=== PATIENT | male | born 1935 ===

== ENCOUNTER 2017-12-13 11:55 | Observation (INO) | payer MEDICARE, OTHER ==
[~2017-12-13] VITALS: Ht 167.6 cm; Wt 72.8 kg
[2017-12-13 12:51] LABS: BASOPHILS # (AUTO) 0.1 (0.0-0.1); BASOPHILS % 0.6 % (0.0-1.0); EOSINOPHILS # (AUTO) 0.3 (0.0-0.4); EOSINOPHILS % 2.2 % (0.0-6.0); HEMATOCRIT 44.9 % (38.2-49.6); HEMOGLOBIN 14.8 g/dL (14.0-18.0); LYMPHOCYTES # (AUTO) 1.5 (1.0-3.2); MEAN CORPUSCULAR HEMOGLOBIN 32.9 pg (28-32); MEAN CORPUSCULAR VOLUME 99.8 fL (81-99); MONOCYTES # (AUTO) 0.5 (0.2-0.8); MONOCYTES % 3.9 % (4.4-11.3); NEUTROPHILS # (AUTO) 10.3 (2.1-6.9); NEUTROPHILS % 80.9 % (38.7-80.0); PLATELET COUNT 348 x10e3/uL (140-360); RED CELL DISTRIBUTION WIDTH 13.9 % (11.7-14.4)
[2017-12-13 12:52] LABS: CLARITY,URINE CLEAR (CLEAR); COLOR,URINE AMBER (YELLOW); KETONES,URINE NEGATIVE (NEGATIVE); LEUKOCYTE ESTERASE ,URINE TRACE (NEGATIVE); NITRITE,URINE NEGATIVE (NEGATIVE); PROTEIN,URINE DIPSTICK 2+ (NEGATIVE); URINE UROBILINOGEN 1 mg/dL (0.2 - 1)
[2017-12-13 12:53] LABS: BILIRUBIN,URINE 1+ (NEGATIVE)
[2017-12-13 13:04] LABS: RBC,URINE 0-5 /HPF (0-5)
[2017-12-13 13:05] LABS: BACTERIA,URINE FEW /HPF; EPITHELIAL CELLS,URINE FEW /LPF; MUCUS,URINE MODERATE (RARE)
[2017-12-13 13:13] LABS: ALANINE AMINOTRANSFERASE 14 IU/L (0-55); ALBUMIN 3.8 g/dL (3.5-5.0); ALBUMIN/GLOBULIN RATIO 0.8 (0.8-2.0); ALKALINE PHOSPHATASE 80 IU/L (40-150); ANION GAP 17.6 mmol/L (8-16); BLOOD UREA NITROGEN 14 mg/dL (7-26); BUN/CREATININE RATIO 16 (6-25); CALCIUM 9.8 mg/dL (8.4-10.2); CARBON DIOXIDE 26 mmol/L (22-29); CHLORIDE 98 mmol/L (98-107); EST GLOMERULAR FILTRATION RATE > 60 ML/MIN (60-); GLUCOSE 160 mg/dL (74-118); POTASSIUM 4.6 mmol/L (3.5-5.1); SODIUM 137 mmol/L (136-145)
[2017-12-13 13:14] LABS: AMYLASE 61 U/L (25-125); LIPASE 35 U/L (8-78)
--- NOTE | 2017-12-13 15:33 | Diagnostic Imaging Report ---
Exam: Abdominal film Clinical History: Upper abdominal pain today Comparison: None. DISCUSSION: Frontal view of the abdomen shows multiple centrally located, air-filled, dilated loops of small bowel, with maximal measurement of 5.6 cm. Large bowel is normal in caliber. Air is noted in the rectum. No calcifications project over the genitourinary system. No acute bony abnormalities. Multilevel degenerative disc changes in the lumbosacral spine. Coarsening of the pulmonary interstitium in bilateral lung bases, which may reflect chronic fibrotic changes. IMPRESSION: 1. Multiple centrally located, air-filled dilated loops of small bowel. This may represent small bowel obstruction versus ileus. The staff physician below has personally reviewed this exam on the date of dictation. Signed by: Dr. Umberto Morris M.D. on 12/13/2017 3:30 PM
[2017-12-13] MEDS ORDERED: CEFTRIAXONE SOD 1 GM VIAL IM ONE (17:00)
[2017-12-13] MEDS ORDERED: CEFTRIAXONE SOD 1 GM VIAL IV ONE (17:45)
[2017-12-13] MEDS ORDERED: VENTOLIN HFA18 GM INH (19:09)
[2017-12-13] MEDS ORDERED: [UNRECOGNIZED DRUG - OTHER] INH (19:09)
[2017-12-13] MEDS ORDERED: anoro ellipta INH (19:09)
[2017-12-13] MEDS ORDERED: ALBUTEROL0.63 MG/3 NEB (19:10)
[2017-12-13] MEDS ORDERED: MORPHINE SULFATE INJ 4 MG/ML INJ IV PRN (19:15)
[2017-12-13] MEDS ORDERED: MORPHINE SULFATE 2 MG/ML SYR IV PRN (19:15)
[2017-12-13] MEDS ORDERED: ONDANSETRON HCL INJ 2 MG/ML VIAL IV PRN (19:15)
[2017-12-13] MEDS: SODIUM CHLORIDE 0.9% 250ML IRRIG IR SCH ×2 (20:02→23:45)
[2017-12-13 21:40] VITALS: BP 129/67
[2017-12-13 22:00] VITALS: BP 129/67
[2017-12-13 23:15] VITALS: BP 147/67
[2017-12-14] VITALS (7 sets, daily range): BP systolic 126–138; BP diastolic 69–75
[2017-12-14] MEDS: SODIUM CHLORIDE 0.9% 250ML IRRIG IR SCH ×3 (03:43→11:15)
[2017-12-14 07:41] LABS: CHOL/HDL RATIO 2.9 (3.9-4.7)
--- NOTE | 2017-12-14 09:04 | Diagnostic Imaging Report ---
Exam: Abdominal film Clinical History: Small bowel obstruction follow-up Comparison: KUB 12/13/2017 DISCUSSION: Frontal view of the abdomen shows a nonobstructive bowel gas pattern with mild amount of retained stool.There are no dilated, air-filled loops of bowel. There are no abnormal calcifications.No acute bone abnormality. Multilevel degenerative disc changes in the lumbosacral spine. IMPRESSION: 1. Nonobstructive bowel gas pattern. No air-filled, dilated loops of bowel The staff physician below has personally reviewed this exam on the date of dictation. Signed by: Dr. Umberto Morris M.D. on 12/14/2017 9:01 AM
[2017-12-14] MEDS: FAMOTIDINE 20 MG/2 ML VIAL IV SCH ×2 (10:06→17:35)
--- NOTE | 2017-12-14 10:54 | Consultation ---
DATE OF CONSULTATION: December 14, 2017 CHIEF COMPLAINT: Abdominal pain. HISTORY OF PRESENT ILLNESS: The patient is an 82-year-old male with a 2-day history of periumbilical abdominal pain and vomiting without hematemesis. The patient has a history of recurrent small-bowel obstruction. He denies fever, chills or diarrhea. PAST MEDICAL HISTORY: Significant for recurrent small-bowel obstruction since peritonitis at age 32 from perforated intestine. ALLERGIES: HE HAS NO DRUG ALLERGIES. SOCIAL HABITS: The patient denied current alcohol use or smoking. REVIEW OF SYSTEMS: No chest pain or shortness of breath. Since admission, he has been passing flatus. PHYSICAL EXAMINATION VITALS: Stable. Afebrile. GENERAL: He is awake and alert. No apparent discomfort. HEENT: Sclerae are nonicteric. NECK: Supple. LUNGS: Clear. HEART: Regular rate and rhythm. ABDOMEN: Soft. There are midline incisions. No focal tenderness or mass. EXTREMITIES: Without cyanosis or edema. White cell count 13, hemoglobin of 14. Creatinine is 0.9. Lipase 35. Abdominal x-ray shows several dilated loops of small bowel suggestive of bowel obstruction. ASSESSMENT: Recurrent small-bowel obstruction secondary to adhesions, most likely. Repeat x-ray this a.m. has shown resolution of intestinal obstruction. PLAN: Remove NG tube. Clear liquid diet and advanced as tolerated. Thank you for the consultation. Job#: [id number] [place]
[2017-12-14] MEDS: ENOXAPARIN SOD INJ 40 MG/0.4 ML SYR SC SCH (17:35)
[2017-12-14] MEDS: ANORO ELLIPTA INH SCH (19:00)
[2017-12-14] MEDS ORDERED: ALBUTEROL SULF 0.083% NEB SOLN 3 ML NEB NEB SCH (21:00)
[2017-12-15] VITALS (7 sets, daily range): BP systolic 106–143; BP diastolic 56–74
[2017-12-15] MEDS: UMECLIDINIUM INH SCH (06:00)
[2017-12-15] MEDS: ANORO ELLIPTA INH SCH (07:00)
[2017-12-15] MEDS: FAMOTIDINE 20 MG/2 ML VIAL IV SCH ×2 (09:09→16:39)
--- NOTE | 2017-12-15 16:19 | History and Physical ---
TIME: 8 a.m. PRIMARY CARE PHYSICIAN: Dr. Galye CHIEF COMPLAINT: Abdominal pain and vomiting. HISTORY OF PRESENT ILLNESS: This is an 82-year-old man with a history of pulmonary fibrosis and small-bowel obstruction in 1999, now developing abdominal pain in the midabdomen with nausea, vomiting and fever. The patient has significant constipation. Last small-bowel obstruction was about 6 years ago. PAST MEDICAL HISTORY: Pulmonary fibrosis, small-bowel obstruction in 1999. PAST SURGICAL HISTORY: Intestinal for small-bowel obstruction in 1999. ALLERGIES: PER ELECTRONIC MEDICAL RECORD. FAMILY HISTORY/SOCIAL HISTORY: Patient is . Has 5 children. No alcohol, illicits or cigarettes. MEDICATIONS: Per electronic medical record. REVIEW OF SYSTEMS: Denies any dizziness, fever, chills, sweats, leg pain, back pain, headache, vision changes. PHYSICAL EXAMINATION VITAL SIGNS: Reviewed. GENERAL: A tired-appearing man resting in bed. HEENT: Anicteric. He has an NG tube in place. CARDIOVASCULAR: Normal S1 and S2. LUNGS: Moderate breath sounds. ABDOMEN: Soft and nondistended. Tender in the midabdomen. Mid-surgical scar in the abdomen and right oblique surgical scar. EXTREMITIES: No edema. SKIN: Dry. PSYCHIATRIC: Flat affect. NEUROLOGICAL: Alert and oriented times 3. LABS: Reviewed. MEDICATIONS: Reviewed. ASSESSMENT: An 82-year-old man with: 1. Small-bowel obstruction. 2. Urinary tract infection. 3. Hyperglycemia. 4. Pulmonary fibrosis. PLAN 1. Continue NG tube. 2. N.p.o. status. 3. IV fluids. 4. Ambulate the patient. 5. Use Lovenox and Pepcid for prophylaxis. 6. Monitor closely. Follow up surgical recommendations. Job#: [id number] [place]
[2017-12-15 16:27] LABS: BASOPHILS # (AUTO) 0.1 (0.0-0.1); BASOPHILS % 1.2 % (0.0-1.0); EOSINOPHILS # (AUTO) 2.8 (0.0-0.4); EOSINOPHILS % 27.2 % (0.0-6.0); HEMATOCRIT 40.5 % (38.2-49.6); HEMOGLOBIN 12.9 g/dL (14.0-18.0); LYMPHOCYTES # (AUTO) 2.2 (1.0-3.2); LYMPHOCYTES % 21.4 % (18.0-39.1); MEAN CORPUSCULAR HEMOGLOBIN 32.7 pg (28-32); MEAN CORPUSCULAR HGB CONC 31.9 g/dL (31-35); MEAN CORPUSCULAR VOLUME 102.5 fL (81-99); MONOCYTES # (AUTO) 0.7 (0.2-0.8); MONOCYTES % 7.1 % (4.4-11.3); NEUTROPHILS # (AUTO) 4.4 (2.1-6.9); NEUTROPHILS % 42.9 % (38.7-80.0); PLATELET COUNT 279 x10e3/uL (140-360); RED BLOOD COUNT 3.95 x10e6/uL (4.3-5.7); RED CELL DISTRIBUTION WIDTH 13.4 % (11.7-14.4)
[2017-12-15] MEDS: ENOXAPARIN SOD INJ 40 MG/0.4 ML SYR SC SCH (16:39)
[2017-12-15 16:46] LABS: ANION GAP 13.5 mmol/L (8-16); BLOOD UREA NITROGEN 14 mg/dL (7-26); BUN/CREATININE RATIO 18 (6-25); CALCIUM 8.6 mg/dL (8.4-10.2); CARBON DIOXIDE 23 mmol/L (22-29); CHLORIDE 104 mmol/L (98-107); EST GLOMERULAR FILTRATION RATE > 60 ML/MIN (60-); GLUCOSE 97 mg/dL (74-118); POTASSIUM 4.5 mmol/L (3.5-5.1); SODIUM 136 mmol/L (136-145)
[2017-12-15 19:59] LABS: EOSINOPHILS % (MANUAL) 21 % (0-7); LYMPHOCYTES % (MANUAL) 24 % (19-48); MONOCYTES % (MANUAL) 4 % (3.4-9.0); NEUTROPHILS % (MANUAL) 51 % (40-74)
[2017-12-15 20:00] LABS: ANISOCYTOSIS SLIGHT; PLATELET ESTIMATE ADEQUATE; PLATELET MORPHOLOGY COMMENT NORMAL
[2017-12-15 20:01] LABS: HYPOCHROMASIA SLIGHT
[2017-12-16] VITALS: BP 127/70
[2017-12-16 04:00] VITALS: BP 133/66
[2017-12-16 05:18] LABS: MAGNESIUM 1.8 MG/DL (1.3-2.1); PHOSPHORUS 3.2 MG/DL (2.3-4.7)
[2017-12-16] MEDS: UMECLIDINIUM INH SCH (06:00)
[2017-12-16 07:42] VITALS: BP 130/72
[2017-12-16] MEDS: FAMOTIDINE 20 MG/2 ML VIAL IV SCH (09:03)
[2017-12-16 11:07] LABS: BLOOD UREA NITROGEN 11 mg/dL (7-26); BUN/CREATININE RATIO 14 (6-25); CALCIUM 8.8 mg/dL (8.4-10.2); CARBON DIOXIDE 22 mmol/L (22-29); CHLORIDE 105 mmol/L (98-107); CREATININE, SERUM 0.79 mg/dL (0.72-1.25); EST GLOMERULAR FILTRATION RATE > 60 ML/MIN (60-); GLUCOSE 164 mg/dL (74-118); MAGNESIUM 1.7 MG/DL (1.3-2.1); PHOSPHORUS 2.9 MG/DL (2.3-4.7); SODIUM 136 mmol/L (136-145)
[2017-12-16 11:26] VITALS: BP 147/71
--- NOTE | 2017-12-16 22:35 | Discharge Summary ---
PRINCIPAL DIAGNOSES: 1. Small-bowel obstruction. 2. Urinary tract infection. 3. Hyperglycemia. 4. Pulmonary fibrosis. SECONDARY DIAGNOSIS: Pulmonary fibrosis. CHIEF COMPLAINT: Abdominal pain. HISTORY OF PRESENT ILLNESS: An 82-year-old man with abdominal pain. Please refer to Miriam and P for further details. HOSPITAL COURSE: Patient found to have small-bowel obstruction, NG tube was placed. Patient was . NG tube removed, patient did well, subsequently transitioned out of the hospital. DISCHARGE MEDICATIONS: Per electronic medical record. FOLLOWUP: With primary care doctor in 1 week. CONDITION ON DISCHARGE: Stable and improving. DISCHARGE LOCATION: Home. DAT TREJO MD Job#: [id number]
== END 2017-12-16 13:15 | disposition home or self-care (01) ==
LOC: ER 11:55 → ERHOLD 19:47 → MED/SURG3 20:25 → ERHOLD 20:42 → IMCU 20:53
PROVIDERS: ADMIT Internal Medicine; ATTEND Internal Medicine
DX: K56.52 Intestinal adhesions [bands] with complete obstruction (principal); N39.0 Urinary tract infection, site not specified; J84.10 Pulmonary fibrosis, unspecified; R73.9 Hyperglycemia, unspecified
CPT/HCPCS: 36415 ×4; 74018 ×2; 80048 ×2; 80053; 80061; 81001; 82150; 82948 ×4; 83036; 83605; 83690; 83735; 84100; 85025 ×2; 87086; 93005; 97116; 97161; 99284; G0378 ×4; G8978; G8979; G8980; J0696; J1650 ×2